=== PATIENT | female | born 1950 | race Caucasian/White ===

== ENCOUNTER 2018-11-09 11:12 | Emergency (ER) | payer BC, OTHER ==
[~2018-11-09] VITALS: Ht 167.6 cm; Wt 49.0 kg
[~2018-11-09 11:12] MED LIST: ALPR0.5T PO; AMLO10TA7 PO; FURO-145 PO; LISI10TA5 PO; METO25TA6 PO; POTA10TA10 PO
[2018-11-09] MEDS ORDERED: IV NS 0.9% 1,000 ML BAG IV ONE (11:30)
[2018-11-09 11:43] LABS: EOSINOPHILS % (AUTO) 3.7 % (0.0-6.0); HEMATOCRIT 36 % (33-45); HEMOGLOBIN 12.5 g/dL (11.5-14.8); LYMPHOCYTES # (AUTO) 0.3 /CMM (0.8-4.8); LYMPHOCYTES % (AUTO) 9.3 % (20.0-44.0); MEAN CORPUSCULAR HGB CONC 35 g/dl (31.0-36.0); MEAN CORPUSCULAR VOLUME 95 fL (82-100); MONOCYTES # (AUTO) 0.3 /CMM (0.1-1.30); MONOCYTES % (AUTO) 11.1 % (2.0-12.0); NEUTROPHILS # (AUTO) 2.1 /CMM (1.8-8.9); NEUTROPHILS % (AUTO) 74.9 % (43.0-81.0); PLATELET COUNT (AUTO) 224 /CMM (150-450); RED BLOOD CELL COUNT(AUTO) 3.78 MIL/uL (4.0-5.2); WHITE BLOOD COUNT (AUTO) 2.8 K/uL (4.3-11.0)
[2018-11-09 11:50] LABS: CALCIUM, SERUM 9.2 mg/dL (8.5-10.1); CREATININE 0.6 mg/dL (0.6-1.3); POTASSIUM 4.1 mmol/L (3.5-5.1)
--- NOTE | 2018-11-09 12:00 | NUR ---
patient NATASHA RA 89 From Home "Anxiety/panic attack/Not feeling well was seen 10/29 told sodium level low". on room air, breathing evenly and unlabored. connected to the monitor accordingly. Kept comfortable, will continue to monitor accordingly.
[2018-11-09 13:41] VITALS: BP 110/69
--- NOTE | 2018-11-09 13:45 | NUR ---
Patient discharged to home in stable condition. Written and verbal after care instructions given. Patient verbalizes understanding of instruction.IV removed. Catheter intact and site benign. Pressure and 4x4 applied to site. No bleeding noted.
== END 2018-11-09 13:45 | disposition home or self-care (01) ==
LOC: ER 11:15
DX: E87.1 Hypo-osmolality and hyponatremia (principal); G47.00 Insomnia, unspecified; F41.9 Anxiety disorder, unspecified; I10 Essential (primary) hypertension; R42 Dizziness and giddiness; Z88.6 Allergy status to analgesic agent; Z60.2 Problems related to living alone; Z79.899 Other long term (current) drug therapy
CPT/HCPCS: 36415; 71045; 80048; 85025; 93005; 96360; 99284; J7030

== ENCOUNTER 2019-11-13 04:54 | Emergency (ER) | payer OTHER ==
[~2019-11-13] VITALS: Ht 167.6 cm; Wt 44.5 kg
--- NOTE | 2019-11-13 04:58 | NUR ---
PATIENT CAME TO ER BED 10 C/O LOWER ABDOMINAL PAIN SINCE 4x HOURS AGO AT HOME. PATIENT STATES THAT SHE IS ANXIOUS. "I CAN'T THINK STRAIGHT". AAOX3. NO SOB. BREATHING EVENLY AND UNLABORED ON ROOM AIR. CONNECTED TO MONITOR.
[2019-11-13] MEDS ORDERED: ONDANSETRON HCL/PF 4 MG/2 ML VIAL ONE (05:12)
[2019-11-13] MEDS ORDERED: LORAZEPAM INJ 2 MG/ML VIAL ONE (05:28)
[2019-11-13] MEDS ORDERED: LORAZEPAM INJ 2 MG/ML VIAL IV ONE (05:30)
[2019-11-13] MEDS ORDERED: ONDANSETRON HCL/PF 4 MG/2 ML VIAL IVP ONE (05:30)
[2019-11-13] MEDS ORDERED: IV NS 0.9% 500 ML BAG IV ONE (05:30)
[2019-11-13 05:33] LABS: BASOPHILS % (AUTO) 1.1 % (0.0-2.0); EOSINOPHILS % (AUTO) 1.3 % (0.0-6.0); HEMATOCRIT 36 % (33-45); HEMOGLOBIN 12.3 g/dL (11.5-14.8); LYMPHOCYTES # (AUTO) 0.3 /CMM (0.8-4.8); LYMPHOCYTES % (AUTO) 10.8 % (20.0-44.0); MEAN CORPUSCULAR HGB CONC 34 g/dl (31.0-36.0); MEAN CORPUSCULAR VOLUME 93 fL (82-100); MONOCYTES # (AUTO) 0.4 /CMM (0.1-1.30); MONOCYTES % (AUTO) 11.4 % (2.0-12.0); NEUTROPHILS # (AUTO) 2.3 /CMM (1.8-8.9); NEUTROPHILS % (AUTO) 75.4 % (43.0-81.0); PLATELET COUNT (AUTO) 209 /CMM (150-450); RED BLOOD CELL COUNT(AUTO) 3.87 MIL/uL (4.0-5.2); WHITE BLOOD COUNT (AUTO) 3.1 K/uL (4.3-11.0)
--- NOTE | 2019-11-13 05:37 | NUR ---
PATIENT TAKEN TO CT.
[2019-11-13 05:45] LABS: CALCIUM, SERUM 9.8 mg/dL (8.5-10.1); CARBON DIOXIDE 26 mmol/L (21-32); CHLORIDE 86 mmol/L (98-107); CREATININE 0.7 mg/dL (0.6-1.3); GLUCOSE 116 mg/dL (74-106); POTASSIUM 3.6 mmol/L (3.5-5.1); SODIUM SERUM 122 mmol/L (136-145); UREA NITROGEN, BLOOD 16 mg/dL (7-18)
[2019-11-13 05:51] LABS: ALANINE AMINOTRANSFERASE 33 U/L (12-78); ALBUMIN 4.1 g/dL (3.4-5.0); ALKALINE PHOSPHATASE 51 U/L (46-116); ASPARTATE AMINOTRANSFERASE 28 U/L (15-37); BILIRUBIN,DIRECT 0.2 mg/dL (0.0-0.2); BILIRUBIN,TOTAL 0.6 mg/dL (0.2-1.0); LIPASE 173 U/L (73-393); TOTAL PROTEIN, SERUM 7.1 g/dL (6.4-8.2)
--- NOTE | 2019-11-13 06:31 | NUR ---
PATIENT IS SLEEPING. EASILY AROUSABLE. CONNECTED TO MONITOR. BREATHING EVENLY AND UNLABORED ON ROOM AIR. NOT IN ANY DISTRESS. SITTER AT BEDSIDE.
--- NOTE | 2019-11-13 06:42 | NUR ---
PATIENT AMBULATED TO THE RESTROOM WITH ASSISTANCE AND STEADY GAIT. URINE COLLECTED AND SENT TO LAB.
[2019-11-13 07:42] LABS: CALCIUM, SERUM 9.2 mg/dL (8.5-10.1); CREATININE 0.6 mg/dL (0.6-1.3); POTASSIUM 4.1 mmol/L (3.5-5.1)
[2019-11-13 09:01] LABS: APPEARANCE,URINE CLEAR (CLEAR); BILIRUBIN,URINE NEGATIVE (NEGATIVE); BLOOD, URINE NEGATIVE Ery/uL (NEGATIVE); COLOR,URINE YELLOW (YELLOW); KETONES,URINE NEGATIVE (NEGATIVE); LEUKOCYTE ESTERASE ,URINE NEGATIVE (NEGATIVE); NITRITE, URINE NEGATIVE (NEGATIVE); PROTEIN,URINE NEGATIVE (NEGATIVE); UGLUCOSE NEGATIVE (NEGATIVE); UROBILINOGEN,URINE 0.2 EU/dL (0.2)
--- NOTE | 2019-11-13 09:03 | NUR ---
LEFT VM TO FRIEND JONELLE [phone] TO VEGETABLE TESTER PATIENT
--- NOTE | 2019-11-13 09:19 | NUR ---
IV removed. Catheter intact and site benign. Pressure and 4x4 applied to site. No bleeding noted.Patient assisted to waiting room via wheelchair in stable condition. Written and verbal after care instructions given. Patient verbalizes understanding of instruction. patient agreed to set up a cab to get her home. Admitting will set a cab for her. Provided patient with mask.
[2019-11-13 09:20] VITALS: BP 110/71
== END 2019-11-13 09:21 | disposition home or self-care (01) ==
LOC: ER 04:55
DX: K59.00 Constipation, unspecified (principal); E87.1 Hypo-osmolality and hyponatremia; I10 Essential (primary) hypertension; I48.91 Unspecified atrial fibrillation; F41.9 Anxiety disorder, unspecified; Z88.6 Allergy status to analgesic agent; Z60.2 Problems related to living alone; Z79.899 Other long term (current) drug therapy
CPT/HCPCS: 36415; 71045; 74176; 80048 ×2; 80076; 81001; 83690; 84484; 85025; 85730; 93005; 96374; 99285; J2060; J2405; J7040; 81000-TC

== ENCOUNTER 2020-01-20 12:14 | Emergency (ER) | payer OTHER ==
[~2020-01-20] VITALS: Ht 167.6 cm; Wt 44.5 kg
--- NOTE | 2020-01-20 13:00 | NUR ---
iv line established. blood drawn and sent to lab
[2020-01-20] MEDS ORDERED: LORAZEPAM INJ 2 MG/ML VIAL ONE (13:04)
[2020-01-20] MEDS: LORAZEPAM INJ 2 MG/ML VIAL IV ONE (13:28)
--- NOTE | 2020-01-20 13:28 | NUR ---
NEMO with c/o feeling anxious stating of increased BP when standing up. awaiting MD for jazmin
[2020-01-20 13:32] LABS: BASOPHILS % (AUTO) 0.7 % (0.0-2.0); EOSINOPHILS % (AUTO) 0.3 % (0.0-6.0); HEMATOCRIT 37 % (33-45); HEMOGLOBIN 12.5 g/dL (11.5-14.8); LYMPHOCYTES # (AUTO) 0.2 /CMM (0.8-4.8); LYMPHOCYTES % (AUTO) 5.5 % (20.0-44.0); MEAN CORPUSCULAR HGB CONC 34 g/dl (31.0-36.0); MEAN CORPUSCULAR VOLUME 94 fL (82-100); MONOCYTES # (AUTO) 0.4 /CMM (0.1-1.30); MONOCYTES % (AUTO) 11.2 % (2.0-12.0); NEUTROPHILS # (AUTO) 2.7 /CMM (1.8-8.9); NEUTROPHILS % (AUTO) 82.3 % (43.0-81.0); PLATELET COUNT (AUTO) 209 /CMM (150-450); RED BLOOD CELL COUNT(AUTO) 3.92 MIL/uL (4.0-5.2); WHITE BLOOD COUNT (AUTO) 3.3 K/uL (4.3-11.0)
--- NOTE | 2020-01-20 14:00 | NUR ---
seen by . awaiting for order
[2020-01-20 14:17] LABS: CALCIUM, SERUM 8.9 mg/dL (8.5-10.1); CREATININE 0.5 mg/dL (0.6-1.3); POTASSIUM 3.9 mmol/L (3.5-5.1)
[2020-01-20 14:29] LABS: BILIRUBIN,DIRECT 0.1 mg/dL (0.0-0.2); BILIRUBIN,TOTAL 0.3 mg/dL (0.2-1.0); TOTAL PROTEIN, SERUM 7.1 g/dL (6.4-8.2)
--- NOTE | 2020-01-20 14:30 | NUR ---
seen by MD with order of iv fluids 500cc one time. noted and given
[2020-01-20] MEDS: IV NS 0.9% 500 ML BAG IV ONE (15:20)
[2020-01-20 16:30] VITALS: BP 121/70
[2020-01-21] MEDS ORDERED: ATEN25TA MT (18:53)
[2020-01-21] MEDS ORDERED: AMLO5TAB9 MT (18:53)
[2020-01-21] MEDS ORDERED: ATOR20TA MT (18:53)
[2020-01-21] MEDS ORDERED: LISI-603 MT (18:53)
== END 2020-01-20 16:30 | disposition home or self-care (01) ==
LOC: ER 12:17
DX: F41.9 Anxiety disorder, unspecified (principal); I10 Essential (primary) hypertension; E87.1 Hypo-osmolality and hyponatremia; I48.91 Unspecified atrial fibrillation; Z88.5 Allergy status to narcotic agent; Z60.2 Problems related to living alone; Z79.899 Other long term (current) drug therapy
CPT/HCPCS: 36415; 71045; 80048; 80076; 84484; 85025; 93005 ×2; 96374; 99285; J2060; J7030; J7040

== ENCOUNTER 2020-01-21 17:16 | Emergency (ER) | payer OTHER ==
[2020-01-21] MEDS ORDERED: IV NS 0.9% 1,000 ML BAG IV ONE (18:00)
[2020-01-21] MEDS ORDERED: ONDANSETRON HCL/PF 4 MG/2 ML VIAL IVP ONE (18:00)
[2020-01-21] MEDS ORDERED: ACETAMINOPHEN ES 500 MG TABLET PO ONE (18:00)
[2020-01-21] MEDS ORDERED: ACETAMINOPHEN ES 500 MG TABLET ONE (18:21)
[2020-01-21] MEDS ORDERED: ONDANSETRON HCL/PF 4 MG/2 ML VIAL ONE (18:21)
[2020-01-21] MEDS ORDERED: ATEN25TA MT (18:53)
[2020-01-21] MEDS ORDERED: AMLO5TAB9 MT (18:53)
[2020-01-21] MEDS ORDERED: LISI-603 MT (18:53)
[2020-01-21] MEDS ORDERED: ATOR20TA MT (18:53)
[2020-01-21] MEDS ORDERED: ONDANSETRON 4 MG TAB.RAPDIS ONE (19:52)
[2020-01-21] MEDS ORDERED: ONDANSETRON 4 MG TAB.RAPDIS SL ONE (20:00)
== END 2020-01-21 20:47 | disposition home or self-care (01) ==
DX: E87.1 Hypo-osmolality and hyponatremia (principal); R11.0 Nausea; F41.9 Anxiety disorder, unspecified; I10 Essential (primary) hypertension; I48.91 Unspecified atrial fibrillation; Z88.6 Allergy status to analgesic agent; Z60.2 Problems related to living alone; Z79.899 Other long term (current) drug therapy
CPT/HCPCS: 36415; 80048; 80076; 85025; 93005; 96361; 96374; 99284; J2405; J7030; Q0162